=== PATIENT | female | born 1955 | race African-American/Black ===

== ENCOUNTER 2019-05-08 05:30 | Inpatient (IN) ==
[2019-05-08] MEDS ORDERED: ceFAZolin 1,000 MG VIAL ONE (05:55)
[2019-05-08] MEDS ORDERED: VANCOMYCIN 1,000 MG VIAL ONE (05:55)
[2019-05-08] MEDS ORDERED: GABAPENTIN 400 MG CAPSULE PO ONE (06:00)
[2019-05-08] MEDS ORDERED: VANCOMYCIN INJ 1,000 MG in SODIUM CHLORIDE 0.9% 250 ML IV ONE (06:00)
[2019-05-08] MEDS ORDERED: ACETAMINOPHEN 500 MG TABLET PO ONE (06:00)
[2019-05-08] MEDS ORDERED: ceFAZolin 1,000 MG in SYRINGE 1 EACH IV ONE (06:00)
[2019-05-08] MEDS ORDERED: RANITIDINE 150 MG TABLET PO ONE (06:00)
[2019-05-08] MEDS ORDERED: LIDOCAINE 1% 5 ML VIAL ONE (06:15)
[2019-05-08] MEDS ORDERED: ROPIVACAINE 0.5% 30 ML VIAL ONE (06:15)
[2019-05-08] MEDS ORDERED: fentaNYL 100 MCG/2 ML VIAL ONE (06:16)
[2019-05-08] MEDS ORDERED: MIDAZOLAM 2 MG/2 ML VIAL ONE (06:16)
[2019-05-08] MEDS ORDERED: DEXAMETHASONE 4 MG/1 ML VIAL ONE (06:16)
[2019-05-08] MEDS ORDERED: ALBUTEROL/IPRATROPIUM 3 ML NEB RESP TX ONE (06:24)
[2019-05-08] MEDS ORDERED: ACETAMINOPHEN 500 MG TABLET ONE (06:28)
[2019-05-08] MEDS ORDERED: GABAPENTIN 400 MG CAPSULE ONE (06:29)
[2019-05-08] MEDS ORDERED: RANITIDINE 150 MG TABLET ONE (06:29)
[2019-05-08] MEDS: LACTATED RINGERS 1,000 ML IV SCH (06:47)
[2019-05-08] MEDS ORDERED: TEMAZEPAM 7.5 MG CAPSULE PO PRN (07:10)
[2019-05-08] MEDS ORDERED: ONDANSETRON 4 MG/2 ML VIAL IV PRN ×2 (07:10→10:04)
[2019-05-08] MEDS ORDERED: PROMETHAZINE 25 MG/1 ML VIAL IM PRN (07:10)
[2019-05-08] MEDS ORDERED: MORPHINE 4 MG/1 ML VIAL IV PRN ×2 (07:10→12:00)
[2019-05-08] MEDS ORDERED: diphenhydrAMINE CAP 25 MG CAPSULE PO PRN (07:10)
[2019-05-08] MEDS ORDERED: traMADol 50 MG TABLET PO PRN (07:13)
[2019-05-08 09:48] LABS: Apearance,Urine CLEAR (Clear); Bacteria,Urine Occasional /HPF (Few); Bilirubin,Urine Negative (Negative); Blood, Urine Small mg/dL (Negative); Glucose,Urine (UA) Negative (Negative); Ketones,Urine Negative (Negative); Mucus,Urine Occasional /LPF (Occasional); Nitrite,Urine Negative (Negative); Protein,Urine Negative; RBC,Urine 3 /HPF (0-4); Urine Color Yellow (Yellow); Urine Specific Gravity 1.026 (1.001-1.035); Urine Urobilinogen < 2.0 EU/DL (0.2-1.0); WBC,Urine <1 /HPF (0-6)
[2019-05-08] MEDS ORDERED: LIDOCAINE 2% 5 ML VIAL ONE (09:50)
[2019-05-08] MEDS ORDERED: propofoL 200 MG/20 ML VIAL IV ONE (09:50)
[2019-05-08] MEDS ORDERED: KETAMINE 500 MG/10 ML VIAL ONE (09:50)
[2019-05-08] MEDS ORDERED: SODIUM CHLORIDE 0.9% 200 ML IV ONE (09:51)
[2019-05-08] MEDS ORDERED: LACTATED RINGERS 1,000 ML IV ONE (09:51)
[2019-05-08] MEDS ORDERED: ePHEDrine 50 MG/ML AMP ONE (09:51)
[2019-05-08] MEDS ORDERED: ONDANSETRON 4 MG/2 ML VIAL ONE ×2 (09:51→10:00)
[2019-05-08] MEDS ORDERED: HYDROmorphone 2 MG/1 ML VIAL IV PRN (10:04)
[2019-05-08] MEDS ORDERED: SCOPOLAMINE 1.5 MG PATCH TRANSDERM ONE (10:16)
[2019-05-08] MEDS ORDERED: METOCLOPRAMIDE 10 MG/2 ML VIAL IV ONE (10:17)
[2019-05-08] MEDS ORDERED: METOCLOPRAMIDE 10 MG/2 ML VIAL ONE (10:20)
[2019-05-08] MEDS ORDERED: PROMETHAZINE INJ 6.25 MG in SODIUM CHLORIDE 0.9% 50 ML IV ONE (10:51)
[2019-05-08] MEDS ORDERED: PROMETHAZINE 25 MG/1 ML VIAL ONE (10:53)
[2019-05-08] MEDS: ENALAPRIL 10 MG TABLET PO SCH (12:19)
[2019-05-08] MEDS: LEVOTHYROXINE 25 MCG TABLET PO SCH (12:20)
[2019-05-08] MEDS: VITAMIN E 400 UNIT CAPSULE PO SCH (12:21)
[2019-05-08] MEDS: hydroCHLOROthiazide 25 MG TABLET PO SCH (12:21)
[2019-05-08] MEDS: DOCUSATE SODIUM 100 MG CAPSULE PO SCH ×2 (12:22→21:09)
[2019-05-08] MEDS: CHOLECALCIFEROL 400 UNIT TABLET PO SCH (12:22)
[2019-05-08] MEDS: CETIRIZINE 10 MG TABLET PO SCH (12:22)
[2019-05-08] MEDS: CYANOCOBALAMIN 500 MCG TABLET PO SCH (12:22)
[2019-05-08] MEDS: MELOXICAM 7.5 MG TABLET PO SCH (12:23)
[2019-05-08] MEDS: PANTOPRAZOLE 40 MG TABLET PO SCH (12:23)
[2019-05-08] MEDS: SIMVASTATIN 20 MG TABLET PO SCH (12:24)
[2019-05-08] MEDS ORDERED: BUPIVACAINE SPINAL 0.75% 2 ML AMP SPINAL ONE (13:47)
[2019-05-08] MEDS: ceFAZolin 2,000 MG in PREMIX 1 EACH IV SCH (18:05)
[2019-05-09] MEDS: ceFAZolin 2,000 MG in PREMIX 1 EACH IV SCH (01:14)
[2019-05-09] MEDS: LEVOTHYROXINE 25 MCG TABLET PO SCH (06:30)
[2019-05-09 06:31] LABS: Basophils % 0.1 % (0.0-0.8); Eosinophils % 0.1 % (0.00-10.9); Immature Granulocytes % 0.3 %; Immature Granulocytes Absolute 0.03 #; Lymphocytes # 2.5 10*3/uL (1.4-4.0); Lymphocytes % 26.3 % (21.3-54.2); Mean Corpuscular HGB Conc 33.3 GM/DL (32-36); Mean Corpuscular Volume 94.6 FL (87-102); Mean Platelet Volume 9.5 FL (9.6-12.0); Monocytes % 7.2 % (1.7-12.7); Platelet Count 201 T/CUMM (130-400); Red Blood Count 3.49 MC/CUMM (3.8-5.5); Red Cell Distribution Width 12.2 % (9.3-17.3); White Blood Count 9.3 T/CUMM (4-12)
[2019-05-09 06:57] LABS: Calcium 8.3 MG/DL (8.5-10.1); Osmolality,Calculated 278.5 MOS/KG (273-304)
[2019-05-09] MEDS: CYANOCOBALAMIN 500 MCG TABLET PO SCH (08:17)
[2019-05-09] MEDS: hydroCHLOROthiazide 25 MG TABLET PO SCH (08:17)
[2019-05-09] MEDS: CHOLECALCIFEROL 400 UNIT TABLET PO SCH (08:17)
[2019-05-09] MEDS: VITAMIN E 400 UNIT CAPSULE PO SCH (08:17)
[2019-05-09] MEDS: MELOXICAM 7.5 MG TABLET PO SCH (08:17)
[2019-05-09] MEDS: CETIRIZINE 10 MG TABLET PO SCH (08:17)
[2019-05-09] MEDS: SIMVASTATIN 20 MG TABLET PO SCH (08:18)
[2019-05-09] MEDS: PANTOPRAZOLE 40 MG TABLET PO SCH (08:18)
[2019-05-09] MEDS: DOCUSATE SODIUM 100 MG CAPSULE PO SCH ×2 (08:18→20:23)
[2019-05-09] MEDS: ENALAPRIL 10 MG TABLET PO SCH (08:18)
[2019-05-09] MEDS ORDERED: TUBERCULIN SKIN TEST 0.1 ML SYRINGE INTRADERM ONE (08:49)
[2019-05-09] MEDS: POTASSIUM CHLORIDE 20 MEQ TABLET PO PRN ×3 (13:10→19:30)
[2019-05-09] MEDS: FONDAPARINUX 2.5 MG/0.5 ML SYRINGE SUBCUT SCH (20:23)
[2019-05-09] MEDS: LACTATED RINGERS 1,000 ML IV SCH (23:07)
[2019-05-10] MEDS: POTASSIUM CHLORIDE 20 MEQ TABLET PO PRN (01:07)
[2019-05-10] MEDS: LACTATED RINGERS 1,000 ML IV SCH (01:11)
[2019-05-10] MEDS: LEVOTHYROXINE 25 MCG TABLET PO SCH (06:25)
[2019-05-10] MEDS: DOCUSATE SODIUM 100 MG CAPSULE PO SCH ×2 (08:50→21:16)
[2019-05-10] MEDS: MELOXICAM 7.5 MG TABLET PO SCH (08:50)
[2019-05-10] MEDS: CHOLECALCIFEROL 400 UNIT TABLET PO SCH (08:51)
[2019-05-10] MEDS: CYANOCOBALAMIN 500 MCG TABLET PO SCH (08:51)
[2019-05-10] MEDS: ENALAPRIL 10 MG TABLET PO SCH (08:51)
[2019-05-10] MEDS: SIMVASTATIN 20 MG TABLET PO SCH (08:51)
[2019-05-10] MEDS: MAGNESIUM HYDROXIDE SUSP 30 ML UDCUP PO PRN (08:51)
[2019-05-10] MEDS: hydroCHLOROthiazide 25 MG TABLET PO SCH (08:51)
[2019-05-10] MEDS: VITAMIN E 400 UNIT CAPSULE PO SCH (08:51)
[2019-05-10] MEDS: CETIRIZINE 10 MG TABLET PO SCH (08:51)
[2019-05-10] MEDS: PANTOPRAZOLE 40 MG TABLET PO SCH (08:51)
[2019-05-10] MEDS: POTASSIUM CHLORIDE 20 MEQ TABLET PO SCH (08:54)
[2019-05-10] MEDS: FONDAPARINUX 2.5 MG/0.5 ML SYRINGE SUBCUT SCH (21:16)
[2019-05-11] MEDS: LEVOTHYROXINE 25 MCG TABLET PO SCH (06:35)
[2019-05-11] MEDS: MELOXICAM 7.5 MG TABLET PO SCH (09:01)
[2019-05-11] MEDS: SIMVASTATIN 20 MG TABLET PO SCH (09:02)
[2019-05-11] MEDS: ENALAPRIL 10 MG TABLET PO SCH (09:02)
[2019-05-11] MEDS: CYANOCOBALAMIN 500 MCG TABLET PO SCH (09:02)
[2019-05-11] MEDS: CETIRIZINE 10 MG TABLET PO SCH (09:02)
[2019-05-11] MEDS: POTASSIUM CHLORIDE 20 MEQ TABLET PO SCH (09:02)
[2019-05-11] MEDS: CHOLECALCIFEROL 400 UNIT TABLET PO SCH (09:02)
[2019-05-11] MEDS: hydroCHLOROthiazide 25 MG TABLET PO SCH (09:02)
[2019-05-11] MEDS: PANTOPRAZOLE 40 MG TABLET PO SCH (09:02)
[2019-05-11] MEDS: VITAMIN E 400 UNIT CAPSULE PO SCH (09:02)
[2019-05-11] MEDS: DOCUSATE SODIUM 100 MG CAPSULE PO SCH ×2 (09:03→20:37)
[2019-05-11] MEDS: MAGNESIUM HYDROXIDE SUSP 30 ML UDCUP PO PRN ×2 (09:06→18:08)
[2019-05-11] MEDS: FONDAPARINUX 2.5 MG/0.5 ML SYRINGE SUBCUT SCH (20:37)
[2019-05-12] MEDS: MAGNESIUM HYDROXIDE SUSP 30 ML UDCUP PO PRN ×2 (00:15→09:38)
[2019-05-12] MEDS: LEVOTHYROXINE 25 MCG TABLET PO SCH (06:46)
[2019-05-12] MEDS: SIMVASTATIN 20 MG TABLET PO SCH (09:38)
[2019-05-12] MEDS: CETIRIZINE 10 MG TABLET PO SCH (09:38)
[2019-05-12] MEDS: MELOXICAM 7.5 MG TABLET PO SCH (09:39)
[2019-05-12] MEDS: CYANOCOBALAMIN 500 MCG TABLET PO SCH (09:39)
[2019-05-12] MEDS: PANTOPRAZOLE 40 MG TABLET PO SCH (09:39)
[2019-05-12] MEDS: ENALAPRIL 10 MG TABLET PO SCH (09:39)
[2019-05-12] MEDS: CHOLECALCIFEROL 400 UNIT TABLET PO SCH (09:40)
[2019-05-12] MEDS: VITAMIN E 400 UNIT CAPSULE PO SCH (09:40)
[2019-05-12] MEDS: hydroCHLOROthiazide 25 MG TABLET PO SCH (09:40)
[2019-05-12] MEDS: DOCUSATE SODIUM 100 MG CAPSULE PO SCH (09:40)
[2019-05-12] MEDS: POTASSIUM CHLORIDE 20 MEQ TABLET PO SCH (09:40)
[2019-05-12] MEDS ORDERED: BISACODYL 10 MG SUPP RECTAL ONE (09:57)
[2019-05-12 12:00] VITALS: BP 112/52
== END 2019-05-12 14:02 | disposition swing bed (61) | DRG 470 ==
LOC: N.SDSINP 05:30 → N.3E 11:50
PROVIDERS: ADMIT Orthopaedic Surgery; ATTEND Orthopaedic Surgery